=== PATIENT | male | born 1980 | race Caucasian/White ===

== ENCOUNTER 2018-04-21 15:54 | Inpatient (IN) ==
[2018-04-21] MEDS ORDERED: NS IV ONE (16:37)
[2018-04-21] MEDS ORDERED: THIAMINE IV ONE (16:37)
[2018-04-21 16:59] LABS: BASO# 0.03 X1000 (0.0-0.2); BASO% 0.7 % (0.0-0.8); EOS# 0.02 X1000 (0.0-0.7); EOS% 0.4 % (0.0-10.0); HEMATOCRIT 39.3 % (42.0-52.0); HEMOGLOBIN 13.4 g/dL (14.0-18.0); LYMPH% 26.4 % (20.5-51.1); MCH 28.5 PG (27-31); MCHC 34.1 g/dL (33-37); MCV 83.6 FL (81-99); MONO# 0.26 X1000 (0.11-0.59); MONO% 5.7 % (1.7-9.3); NEUT# 3.04 X1000 (1.4-6.5); NEUT% 66.8 % (42.2-75.2); PLT 201 X1000 (130-400); RDW 17.3 % (11.5-14.5); WBC 4.55 X1000 (4.8-10.8)
[2018-04-21 17:27] LABS: URINE SOURCE CLEAN CATCH
[2018-04-21 17:30] LABS: BILIRUBIN URINE SMALL (NEGATIVE); BLOOD URINE MODERATE (NEGATIVE); COLOR YELLOW; GLUCOSE URINE NEGATIVE (NEGATIVE); KETONE URINE NEGATIVE (NEGATIVE); LEUKOCYTES URINE NEGATIVE (NEGATIVE); NITRITE URINE NEGATIVE (NEGATIVE); PH URINE 7.5; PROTEIN URINE 30 mg/dL (NEGATIVE); SP GRAVITY URINE 1.019; TURBIDITY URINE CLEAR (CLEAR); UR EPITHELIAL CELLS <10 /HPF (<10); URINE BACTERIA NEGATIVE /HPF; URINE RBC 20-40 /HPF (<10); URINE WBC <10 /HPF (<10); UROBILINOGEN URINE 8 mg/dL (NORMAL)
[2018-04-21 17:54] LABS: AGAP 14; ALB/GLOB RATIO 0.9; ALBUMIN 3.4 g/dL (3.5-5.0); ALKALINE PHOSPHATASE 162 U/L (32-122); BUN 5 mg/dL (8-22); CALCIUM 7.9 mg/dL (8.8-10.2); CHLORIDE 105 mmol/L (98-107); COSMO 281; CREATININE 0.6 mg/dL (0.7-1.2); ESTIMATED GFR > 60; GLUCOSE 137 mg/dL (70-104); GOT 59 U/L (10-34); GPT 19 U/L (10-44); MAGNESIUM 1.6 mg/dL (1.5-2.7); POTASSIUM 3.6 mmol/L (3.5-5.1); SODIUM 141 mmol/L (136-145); TCO2 22 mmol/L (25-35); TOTAL BILIRUBIN 3.08 mg/dL (0.20-1.00)
--- NOTE | 2018-04-21 17:57 | Diag Imaging Result Doc PS360 ---
EXAM: CT HEAD W/O CONTRAST 04/21/2018 HISTORY: ATAXIC GAIT + FALL TO LEFT TECHNIQUE: This exam was performed using automated exposure control, adjustment of mA or kV according to patient size, and/or use of iterative reconstruction technique. COMMENT: There is no evidence of mass effect, bleed, or abnormal extra-axial fluid collection. The calvarium is intact. There is an effusion throughout the right mastoid air cells. The middle ear cavities appear to be pneumatized. IMPRESSION: No evidence of acute intracranial disease. Right mastoid effusion. Electronically signed by Chau Bond 04/21/2018 5:55 PM
[2018-04-21 18:14] LABS: UR BENZODIAZEPIN QUAL NONE DETECTED (NONE DETECT); UR CANNABINOIDS QUAL NONE DETECTED (NONE DETECT); UR COCAINE QUAL NONE DETECTED (NONE DETECT); UR METHADONE QUAL NONE DETECTED (NONE DETECT); UR OPIATES QUAL NONE DETECTED (NONE DETECT); UR OXYCODONE QUAL NONE DETECTED (NONE DETECT); UR PCP QUAL NONE DETECTED (NONE DETECT)
[2018-04-21 18:19] LABS: UR AMPHETAMINES QUAL NONE DETECTED (NONE DETECT); UR BARBITUATES QUAL NONE DETECTED (NONE DETECT)
[2018-04-21] MEDS ORDERED: NS 1,000 ML IV ONE (18:28)
[2018-04-21] MEDS ORDERED: LACTULOSE PO ONE (18:28)
--- NOTE | 2018-04-21 22:02 | HISTORY AND PHYSICAL ---
CHIEF COMPLAINT: Dizziness. HISTORY OF PRESENT ILLNESS: Patient has history of alcoholic cirrhosis. Has had multiple varices banded. Supposedly stopped drinking 6 months ago but had 3 [employer] Lemonades 3 days ago. Interestingly enough, his alcohol level was 255 in the emergency room. However , he vehemently denies drinking recently. He is showing mild confusion. Has just kind of a glazed over affect. He states that he has been having numbness in his legs. He has had an ataxic gait with falls which prompted him to come into the emergency room. A CT of his head was obtained in the emergency room which was grossly normal. He does not have focal or motor deficits that would fit with an acute CVA. The patient's total bilirubin is noted to be 3.08. His ammonia was mildly elevated at 68. He stated that he did take lactulose in the past but apparently had been taken off of that. He was given a dose of lactulose in the emergency room. This will be continued. He will be placed in ICU for fear of withdrawal as the patient is not very reliable on how much he has been drinking. PAST MEDICAL HISTORY: 1. Alcohol abuse. 2. Alcoholic cirrhosis. 3. History of varices. 4. Tobacco abuse. 5. Alcohol abuse. SURGICAL HISTORY: 1. Banding of varices. 2. Right knee surgery. 3. Right wrist surgery. SOCIAL HISTORY: Is from [place]. He is down visiting family. Smokes 6 cigarettes a day. States that he has not drank in 3 days despite his alcohol level being elevated. Prior to that, he states that he has not drank in 6 months. No illicit drug use or abuse. FAMILY HISTORY: He denies history of coronary artery disease, cancer or CVA in first-degree relatives. ALLERGIES: No known drug allergies. HOME MEDICATIONS: No home medications. REVIEW OF SYSTEMS: Fourteen point review of systems conducted with the patient. Pertinent positives listed above in the HPI. All other systems reviewed and found to be negative. PHYSICAL EXAMINATION: VITAL SIGNS: Temperature 98.5, pulse 88, respirations 14, blood pressure 131/73 , oxygen saturation 95% on room air. GENERAL: A 37-year-old male with somewhat odd affect. He answers all questions appropriately, is alert and oriented times 3. Appears to be just very glazed over, not typical just alcohol intoxication although he is in no acute distress. HEENT: Head is atraumatic, normocephalic. Pupils equal, round, reactive to light. Extraocular eye movement is intact. Sclerae are jaundiced. Conjunctiva is pink. Oral mucosa is dry. NECK: Supple. No JVD. No thyromegaly. No carotid bruit. Trachea is midline. No cervical lymphadenopathy. CARDIAC: S1, S2 appreciated. No murmurs, gallops, or rubs. LUNGS: Clear to auscultation bilaterally. No rhonchi, wheezes, rales. Symmetric rise and fall with respirations. ABDOMEN: Protuberant, soft, nondistended, nontender. Positive fluid wave test. Bowel sounds present in all 4 quadrants, normoactive. No pulsatile mass. No organomegaly. EXTREMITIES: No clubbing, cyanosis, or edema. Two-plus pedal pulses bilaterally. GENITOURINARY: No bladder distention. Patient voids. Otherwise deferred. NEUROLOGICAL: Alert and oriented times 3. There are no focal or motor deficits. Patient does not have a resting tremor. He is symmetrical on both sides. He does have an ataxic gait and seems to be leaning somewhat to the left when he walks. Otherwise, cranial nerves II through XII appear to be grossly intact. DIAGNOSTIC DATA: CT of the head: No acute intracranial process. LABORATORY DATA: WBC 4.55. Hemoglobin 13.4. Hematocrit 39.3. Platelet count 201. Sodium 141. Potassium 3.6. Chloride 105. Carbon dioxide 22. BUN 5. Creatinine 0.6. ASSESSMENT AND PLAN: 1. Hepatic Encephalopathy. We will give lactulose and continue to assess. 2. Acute Alcohol Intoxication. Normal saline and monitor for withdrawal symptoms in the ICU. 3. Questionable Wernicke's Triad. Patient had no Ophthalmoplegia but he is confused and ataxic. Thiamine 500 mg was given in the emergency room. We will continue 100 mg of thiamine IV for the next few days. Again, the patient's CT scan was negative. We will continue to monitor patient's neuro status. 4. Tobacco abuse. Patient smokes around 6 cigarettes per day. Smoking cessation was gone over with the patient. He denies wanting to quit at this time. States it is more of a crutch than a true addiction. Further recommendations per patient clinical course. Dictated by AMY Morris for Price Manning MD I have performed a face to face diagnostic evaluation. Labs/Xrays - reviewed. Exam- Chest- clear, Neuro- ataxia A/P- Alcohol intoxication, - Admit, IV fluids, Thiamine, supportive care. Dr. Manning cc: AMY Morris MD [facility]
[2018-04-22] MEDS ORDERED: ZOFRAN IV PRN (03:18)
[2018-04-22] MEDS ORDERED: MAGNESIUM SULFATE 1 GM/D5W 1 GM/100 ML IVPB IV ONE (03:18)
[2018-04-22] MEDS ORDERED: PHENOBARBITAL IV PRN (03:18)
[2018-04-22] MEDS: POTASSIUM CHLORIDE 20 MEQ/SWI 20 MEQ/100 ML IVPB IV SCH ×2 (04:12→06:33)
[2018-04-22] MEDS: NS 1,000 ML IV SCH ×2 (04:13→15:10)
[2018-04-22 04:33] LABS: HEMOGLOBIN A1C 4.7 % (4.8-6.0)
[2018-04-22 05:56] LABS: AGAP 16; BUN 4 mg/dL (8-22); CHLORIDE 104 mmol/L (98-107); COSMO 276; CREATININE 0.5 mg/dL (0.7-1.2); ESTIMATED GFR > 60; GLUCOSE 90 mg/dL (70-104); MAGNESIUM 1.4 mg/dL (1.5-2.7); POTASSIUM 3.3 mmol/L (3.5-5.1); SODIUM 140 mmol/L (136-145); TCO2 20 mmol/L (25-35)
[2018-04-22 07:11] LABS: INR 1.56; PROTIME 19.9 Seconds (11.0-16.0)
[2018-04-22] MEDS: ATIVAN IV PRN ×2 (07:32→12:56)
[2018-04-22 08:45] LABS: BASO# 0.04 X1000 (0.0-0.2); BASO% 0.6 % (0.0-0.8); EOS# 0.06 X1000 (0.0-0.7); EOS% 0.9 % (0.0-10.0); HEMATOCRIT 35.3 % (42.0-52.0); HEMOGLOBIN 11.7 g/dL (14.0-18.0); LYMPH# 2.18 X1000 (1.2-3.4); LYMPH% 32.3 % (20.5-51.1); MCH 27.5 PG (27-31); MCHC 33.1 g/dL (33-37); MCV 83.1 FL (81-99); MONO# 0.71 X1000 (0.11-0.59); MONO% 10.5 % (1.7-9.3); MPV 11.2 FL (7.4-10.4); NEUT# 3.75 X1000 (1.4-6.5); NEUT% 55.7 % (42.2-75.2); PLT 115 X1000 (130-400); RBC 4.25 XMIL (4.7-6.1); RDW 16.5 % (11.5-14.5); WBC 6.74 X1000 (4.8-10.8)
[2018-04-22] MEDS: LACTULOSE PO SCH ×3 (09:47→21:10)
[2018-04-22] MEDS: XIFAXAN PO SCH ×2 (09:47→21:10)
[2018-04-22] MEDS: THIAMINE 100 MG in NS 50 ML IV SCH (09:47)
[2018-04-22] MEDS: LIBRIUM PO SCH ×3 (12:42→21:10)
--- NOTE | 2018-04-22 14:49 | PROGRESS NOTE ---
DATE: 04/22/2018 SUBJECTIVE: Patient reports feeling much better. He is more oriented. He denies any abdominal pain. He denies any melena or hematochezia. OBJECTIVE: Vital Signs: Temperature 99.3, heart rate 93, respiratory rate 16, blood pressure 110/74, O2 sat 93% on room air. General: This is a 37-year-old male lying in bed in no acute distress. HEENT: Head is normocephalic, atraumatic. Mucous membranes dry. Neck: No JVD noted. No carotid bruits. No lymphadenopathy. No thyromegaly. Cardiovascular : S1, S2 heard. No murmurs, gallops or rubs. Regular rate and rhythm. Respiratory: Clear bilaterally to auscultation. No work of breathing or using accessory muscles. Abdomen: Protuberant, soft, mildly tender to palpation in the epigastric area. Positive fluid wave test. Bowel sounds present. No organomegaly noted. Extremities: No clubbing, cyanosis or edema. Peripheral pulses present in both legs. Neurologic: Patient is alert and oriented. Moves 4 extremities. It was reported ataxic gait, but I have not checked gait today on him. Cranial nerves 2 to 12 grossly normal. LABORATORY DATA: White cell count 6.74, hemoglobin 11.7, hematocrit 35.3, platelets 115,000 with BMP remarkable for potassium 3.3 and magnesium is 1.4, phosphorus 3.9. Alcohol level from yesterday was 255. ASSESSMENT AND PLAN: 1. Hepatic encephalopathy. Patient has been started on lactulose. He is responding to therapy. I prefer to use rifaximin that we are going to add to his treatment today. It is going to be 50 mg p.o. b.i.d. 2. Acute alcohol intoxication. At this point, I am more worried about alcohol withdrawal. Patient reports feeling pretty much anxious. I will start Librium on him 25 mg p.o. q.6 hours. 3. Questionable Wernicke's encephalopathy. Patient is receiving thiamine IV. We will continue to monitor this patient closely. 4. Tobacco abuse. Patient advised to stop smoking completely. 5. We will continue to monitor this patient closely here in the ICU. cc: Alonso Pacheco MD MTDD
[2018-04-22] MEDS ORDERED: G.I. COCKTAIL PO ONE (18:12)
[2018-04-22] MEDS ORDERED: SODIUM CHLORIDE 0.9% INJ SCH (18:15)
[2018-04-22] MEDS: PROTONIX IV SCH (18:22)
[2018-04-23] MEDS: NS 1,000 ML IV SCH ×3 (00:11→17:59)
[2018-04-23] MEDS: ATIVAN IV PRN ×3 (01:15→10:53)
[2018-04-23] MEDS: LIBRIUM PO SCH ×4 (03:49→20:35)
[2018-04-23 04:45] LABS: HEMATOCRIT 34.6 % (42.0-52.0); HEMOGLOBIN 11.5 g/dL (14.0-18.0); MCH 28.3 PG (27-31); MCHC 33.2 g/dL (33-37); MCV 85.2 FL (81-99); MPV 11.7 FL (7.4-10.4); RBC 4.06 XMIL (4.7-6.1); RDW 16.2 % (11.5-14.5); WBC 4.99 X1000 (4.8-10.8)
[2018-04-23 04:53] LABS: INR 1.73; PROTIME 21.6 Seconds (11.0-16.0)
[2018-04-23 05:01] LABS: AGAP 13; ALB/GLOB RATIO 0.8; ALBUMIN 2.7 g/dL (3.5-5.0); ALKALINE PHOSPHATASE 143 U/L (32-122); BUN 4 mg/dL (8-22); CALCIUM 8.1 mg/dL (8.8-10.2); CHLORIDE 103 mmol/L (98-107); COSMO 269; CREATININE 0.5 mg/dL (0.7-1.2); ESTIMATED GFR > 60; GLUCOSE 99 mg/dL (70-104); GOT 48 U/L (10-34); GPT 16 U/L (10-44); POTASSIUM 4.2 mmol/L (3.5-5.1); SODIUM 136 mmol/L (136-145); TCO2 20 mmol/L (25-35); TOTAL BILIRUBIN 5.32 mg/dL (0.20-1.00); TOTAL PROTEIN 6.1 g/dL (6.3-8.3)
[2018-04-23] MEDS: PROTONIX IV SCH ×2 (05:56→17:56)
[2018-04-23] MEDS: XIFAXAN PO SCH ×2 (08:37→20:35)
[2018-04-23] MEDS: LACTULOSE PO SCH ×3 (08:37→20:35)
[2018-04-23] MEDS: THIAMINE 100 MG in NS 50 ML IV SCH (08:37)
--- NOTE | 2018-04-23 11:05 | PROGRESS NOTE ---
DATE: 04/23/2018 SUBJECTIVE: The patient is a little more alert today. He denies any melena or any other signs of GI bleeding. He reports poor appetite. OBJECTIVE: Vital Signs: Temperature 98.9 degrees, heart rate 87, respiratory rate 14, blood pressure 125/64, O2 saturation 94% on room air. General: This is a chronically ill-looking 37- year-old male looking older than his stated age, lying in bed, in no acute distress. HEENT: Head is normocephalic, atraumatic with very icteric sclerae. Pale conjunctivae. Neck: No JVD noted. No carotid bruits. No lymphadenopathy. No thyromegaly. Cardiovascular: S1, S2 heard. No murmurs, gallops, or rubs. Regular rate and rhythm. Respiratory: Clear bilaterally to auscultation. No work of breathing or using accessory muscles. Abdomen: Protuberant, soft, ascites noted. Bowel sounds present. No organomegaly. Extremities: No clubbing, cyanosis, or edema. Peripheral pulses present in both legs. Neurological: The patient is awake, moves 4 extremities. LABORATORY DATA: White cell count 4.99, hemoglobin 11.5, hematocrit 34.6, platelets 81. With INR 1.73. Normal BMP. Ammonia level 91. Alkaline phosphatase 143, total bilirubin 5.32. ASSESSMENT AND PLAN: 1. Hepatic encephalopathy. The patient is on lactulose and rifaximin. He is a little more awake than yesterday. We will continue with both medications. 2. Acute alcohol intoxication. Now, the alcohol level is 0. Will be more worried about alcohol withdrawal. We will continue with Librium 25 mg p.o. q.6 hours. 3. Questionable Wernicke encephalopathy. The patient is on thiamine intravenous. Will continue with the same management. There has been report from nurse that this patient has visual hallucinations. We will continue to monitor this patient closely. 4. Alcoholic liver cirrhosis. Unfortunately, this patient, according to him after 4-6 months of being sober, he stared drinking again. Unfortunately, his labs indicate that he has a poor prognosis. His Child-Diaz Score is 12 with an estimated 1 year mortality of 55% and 2 year estimated mortality of 65%. The patient has been informed about his poor prognosis and the fact that he continues to drink alcohol. He is not even a candidate for any liver transplant. In any case, we will continue to monitor this patient closely. I think if he is not having any more visual hallucinations, I think this patient can be moved to a regular floor tomorrow. cc: Alonso Pacheco MD
--- NOTE | 2018-04-23 15:05 | EKG Report ---
Test Performed on : 04/21/2018 8:12:14 PM Test Reason : EKG. No order in [place] Blood Pressure : / mmHG Vent. Rate : 085 BPM Atrial Rate : 085 BPM P-R Int : 138 ms QRS Dur : 090 ms QT Int : 382 ms P-R-T Axes : -11 -25 059 degrees QTc Int : 454 ms Normal sinus rhythm. Normal ECG No previous ECGs available Unconfirmed Result
[2018-04-23 22:41] VITALS: BP 114/86
--- NOTE | 2018-04-24 18:35 | DISCHARGE SUMMARY ---
ADMISSION DATE: 04/21/2018 DISCHARGE DATE: 04/23/2018 DISCHARGE DIAGNOSES: 1. Hepatic encephalopathy. 2. 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 3. Early alcohol withdrawal. 4. Tobacco abuse. 5. Very advanced alcoholic liver cirrhosis. HOSPITAL COURSE: Patient was admitted basically for alcohol intoxication. Patient has a long known history of advanced liver cirrhosis and he was admitted to intensive unit because of those reasons. Patient was having active visual hallucinations. Patient started having some symptoms of alcohol withdrawal. That is why this patient was in intensive care unit. Unfortunately, on April 23 for unknown reasons, after I had talked with this patient in the morning, there is a note from the nurse that they say the patient wants to go home and he left the hospital AMA, even though he was having visual hallucinations. I think this patient will be really shortly back to the hospital and if that happen we need to talk to him seriously about goals of care. I had a long conversation with him day of discharge about his end stage liver disease. Unfortunately he does not understand how sick he is and continue to drink. In the other hand at this hospitalization he expressed his desire to be full code. At this point, the patient has left the hospital AMA, as we mentioned before, on April 23. cc: Alonso Pacheco MD MTDD
== END 2018-04-23 22:50 | disposition left against medical advice (07) | DRG 433 ==
LOC: ED 15:54 → SUATTDRO 20:19 → EDIPHOLD 20:19 → ICU 04-22 02:12
PROVIDERS: ATTEND Internal Medicine
CPT/HCPCS: 70450; 80048; 80053; 80101; 80301; 80307; 80320; 80324; 80345; 80346; 80353; 80358; 80361; 80365; 81001; 82055; 82140; 82948; 82977; 83036; 83735; 83992; 84100; 84425; 84443; 85025; 85027; 85610; 93005; 96361; 96365; 99285; A9270; C9113; G0431; G0434; G0479; G0480; G6040; J2060; J2405; J2560; J3411; J3475; J3480; J7030; S0164; XXXXX

== ENCOUNTER 2018-04-24 10:41 | Inpatient (IN) ==
[2018-04-24 11:15] LABS: INR 1.59; PROTIME 20.2 Seconds (11.0-16.0); PTT 35.9 Seconds (22.3-41.8)
[2018-04-24 11:27] LABS: AGAP 12; ALB/GLOB RATIO 1.1; ALBUMIN 3.5 g/dL (3.5-5.0); ALKALINE PHOSPHATASE 154 U/L (32-122); BUN 4 mg/dL (8-22); CALCIUM 8.5 mg/dL (8.8-10.2); CHLORIDE 102 mmol/L (98-107); COSMO 276; CREATININE 0.7 mg/dL (0.7-1.2); ESTIMATED GFR > 60; GLUCOSE 188 mg/dL (70-104); GOT 38 U/L (10-34); GPT 16 U/L (10-44); POTASSIUM 3.3 mmol/L (3.5-5.1); SODIUM 137 mmol/L (136-145); TCO2 23 mmol/L (25-35); TOTAL BILIRUBIN 4.41 mg/dL (0.20-1.00); TOTAL PROTEIN 6.7 g/dL (6.3-8.3)
[2018-04-24 11:36] LABS: BASO# 0.01 X1000 (0.0-0.2); BASO% 0.2 % (0.0-0.8); EOS# 0.15 X1000 (0.0-0.7); EOS% 2.5 % (0.0-10.0); HEMATOCRIT 38.1 % (42.0-52.0); HEMOGLOBIN 12.5 g/dL (14.0-18.0); LYMPH# 1.86 X1000 (1.2-3.4); LYMPH% 30.7 % (20.5-51.1); MCH 28.1 PG (27-31); MCHC 32.8 g/dL (33-37); MCV 85.6 FL (81-99); MONO# 0.48 X1000 (0.11-0.59); MONO% 7.9 % (1.7-9.3); MPV 11.2 FL (7.4-10.4); NEUT# 3.55 X1000 (1.4-6.5); NEUT% 58.7 % (42.2-75.2); PLT 91 X1000 (130-400); RBC 4.45 XMIL (4.7-6.1); RDW 16.4 % (11.5-14.5); WBC 6.05 X1000 (4.8-10.8)
--- NOTE | 2018-04-24 12:45 | PROVIDER DOCUMENTATION ---
This chart was entered by Tomas Bonilla Scribe, acting as scribe for Gio Ochoa MD. HPI-General Adult - General Chief Complaint: Altered Mental Status Stated Complaint: AMMONIA LEVEL HIGH,AMS Time Seen by Provider: 04/24/18 11:44 Source: patient Allergies/Adverse Reactions: Patient Allergies Allergy/AdvReac Type Severity Reaction Status Date / Time No Known Allergies Allergy Verified 04/24/18 11:14 Home Medications: Home Medication List Medication Instructions Recorded Confirmed Last Taken Type NK [No Home Medications] 04/24/18 04/24/18 Unknown History - History of Present Illness -Gen Adult Nature of Presenting Problems: 37 yom presents with recheck. Pt was admitted to ICU yesterday for Hepatic Encephalopathy and pt signed out AMA.Pt reports he will stay this time. Pt Reports his ammonia level is high and has been hallucinating x 3 days worse day yesterday. Reports last alcohol intake was 3 (16oz) beers yesterday. Last BM 5 days ago. Review of Systems - Adult - REVIEW OF SYSTEMS - ADULT Constitutional: reports: see HPIkrupa. denies: chills, fever Eyes: reports: no symptoms reported Ears, Nose, Mouth & Throat: denies: ear pain, sinus problem, throat pain Cardiovascular: denies: chest pain, irregular heart rate, syncope Respiratory: denies: cough, dyspnea on exertion, shortness of breath, wheezing Gastrointestinal: denies: abdominal pain, diarrhea, nausea, vomiting Genitourinary: denies: dysuria, frequent UTI's, hematuria, hesitency Musculoskeletal: denies: bone pain, joint pain, neck pain Integumentary: reports: no symptoms reported Neurological: denies: loss of balance, numbness, paresthesia, slurred speech Psychiatric: denies: anti-depressant use, panic attacks, suicidal thoughts Endocrine: reports: see HPI. denies: goiter, heat intolerance, increased thirst , other Hematologic/Lymphatic: reports: see HPI Allergic/Immunologic: reports: no symptoms reported All Other Systems: Reviewed and Negative Past History - Adult - PAST MEDICAL HISTORY-ADULT Review of Records: reports: Old Records Reviewed, Nursing Assessment Review, Medications Reviewed Major Childhood Illnesses: reports: denies history Cardiovascular: reports: HTN Respiratory: reports: denies history Gastrointestinal: reports: denies history Obstetrical/Gynecological: reports: denies history Genitourinary: reports: denies history Musculoskeletal: reports: denies history Neurological: reports: denies history Endocrine/Immune: reports: denies history Other Conditions: reports: denies history - IMMUNIZATION STATUS Childhood Immunizations: See Nurse Assessment Flu Vaccine: See Nurse Assessment - FAMILY HISTORY Family History: reviewed, not pertinent - SOCIAL HISTORY Smoking: cigarettes, less than 1 pack/day Provider spent 3-5 mins advising pt. on dangers of tobacco.: Discussed manners to quit use, and f/u contacts for add'l counseling. Substance Use: alcohol Physical Exam-General - PHYSICAL EXAM-ADULT Initial Vital Signs Reviewed: Yes - CONSTITUTIONAL General Appearance: alert, moderate distress, slow to respond. negative: appears well - EYES Eyes: PERRL/EOMI, pale conjunctivae - HEAD, EARS, NOSE, MOUTH & THROAT HENMT: moist mucous membranes, TMs normal, pharynx normal - NECK Neck: non-tender, full range of motion, supple, normal inspection - RESPIRATORY Respiratory: lungs clear, normal breath sounds, no pleuratic chest pain, no respiratory distress, no accessory muscle use - CARDIOVASCULAR Cardiovascular: no edema, no gallop, no JVD, no murmur, tachycardia - GASTROINTESTINAL (ABDOMEN) Abdominal Exam: soft, no organomegaly, no pulsatile mass - LYMPHATIC Lymphatic: no adenopathy - MUSCULOSKELETAL Back Exam: normal inspection Extremity: normal range of motion, non-tender - SKIN Integumentary: normal turgor, warm/dry, pallor. negative: normal color - NEUROLOGIC Neurologic: grossly normal - PSYCHIATRIC Psych/Mental Status: normal mood/affect, normal thought content, normal thought process, oriented x 3 Progress - PLAN OF CARE/RESULTS Progress/Plan/Lab Results: Vital Signs - 8 hr 04/24/18 10:46 Temperature 98.1 F Pulse Rate 121 H Respiratory Rate 20 Blood Pressure 139/89 O2 Sat by Pulse Oximetry 100 Laboratory Results - last 24 hr 04/24/18 04/24/18 04/24/18 10:50 10:50 10:50 WBC 6.05 RBC 4.45 L Hgb 12.5 L Hct 38.1 L MCV 85.6 MCH 28.1 MCHC 32.8 L RDW Std Deviation 16.4 H Plt Count 91 L MPV 11.2 H Immature Gran % (Auto) 0.0 Neut % (Auto) 58.7 Lymph % (Auto) 30.7 Cameron % (Auto) 7.9 Eos % (Auto) 2.5 Baso % (Auto) 0.2 Immature Gran # (Auto) 0.00 Neut # (Auto) 3.55 Lymph # (Auto) 1.86 Cameron # (Auto) 0.48 Eos # (Auto) 0.15 Baso # (Auto) 0.01 PT INR PTT (Actin FS) Sodium 137 Potassium 3.3 L D Chloride 102 Carbon Dioxide 23 L Anion Gap 12 BUN 4 L Creatinine 0.7 Estimated GFR/1.73 m2 > 60 BUN/Creatinine Ratio 6 Glucose 188 H D POC Glucose Calculated Osmolality 276 Calcium 8.5 L Total Bilirubin 4.41 H AST 38 H ALT 16 Alkaline Phosphatase 154 H Ammonia 90 H Total Protein 6.7 Albumin 3.5 Globulin 3.2 Albumin/Globulin Ratio 1.1 04/24/18 04/24/18 10:50 11:03 WBC RBC Hgb Hct MCV MCH MCHC RDW Std Deviation Plt Count MPV Immature Gran % (Auto) Neut % (Auto) Lymph % (Auto) Cameron % (Auto) Eos % (Auto) Baso % (Auto) Immature Gran # (Auto) Neut # (Auto) Lymph # (Auto) Cameron # (Auto) Eos # (Auto) Baso # (Auto) PT 20.2 H INR 1.59 PTT (Actin FS) 35.9 Sodium Potassium Chloride Carbon Dioxide Anion Gap BUN Creatinine Estimated GFR/1.73 m2 BUN/Creatinine Ratio Glucose POC Glucose 181 H Calculated Osmolality Calcium Total Bilirubin AST ALT Alkaline Phosphatase Ammonia Total Protein Albumin Globulin Albumin/Globulin Ratio Orders Category Date Time Status ALCOHOL BLOOD Stat Lab 04/24/18 10:50 Received AMMONIA [CHEM] Stat Lab 04/24/18 10:50 Completed CBC WITH ELECTRONIC DIFF [HEME] Stat Lab 04/24/18 10:50 Completed COMPREHENSIVE METABOLIC PANEL [CHEM] Stat Lab 04/24/18 10:50 Completed PROTIME WITH INR [COAG] Stat Lab 04/24/18 10:50 Completed PTT [COAG] Stat Lab 04/24/18 10:50 Completed URINALYSIS [URINALYSIS] Stat Lab 04/24/18 10:53 Uncollected URINE DRUG SCREEN Stat Lab 04/24/18 11:46 Uncollected Generalized Adult Illness >60 Stat Oth 04/24/18 10:53 Ordered Result Diagrams: 04/24/18 10:50 04/24/18 10:50 - CONSULTS/PCP/HOSPITALIST Notification #1 *Consult/PCP/Hospitalist*: Kb KEATING for Dr. 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 The physician did have a face to face encounter with the patient. This chart was documented by the indicated scribe, (Tomas Bonilla Scribe) and accurately reflects the services I performed and decisions made by me, Gio Ochoa MD, as attested by the provider's signature.
[2018-04-24] MEDS ORDERED: LACTULOSE PO ONE (12:46)
[2018-04-24] MEDS ORDERED: ATIVAN IM ONE (12:47)
[2018-04-24] MEDS ORDERED: NS 1,000 ML IV ONE (15:17)
[2018-04-24] MEDS ORDERED: ZOFRAN IV PRN (15:17)
[2018-04-24] MEDS ORDERED: SODIUM CHLORIDE 0.9% INJ SCH (15:30)
--- NOTE | 2018-04-24 16:21 | HISTORY AND PHYSICAL ---
PRIMARY CARE PHYSICIAN: None. CHIEF COMPLAINT: Lethargy. HISTORY OF PRESENT ILLNESS: Mr. Adan is a 37-year-old male who left against medical advice yesterday from the ICU for hepatic encephalopathy. He has a history of alcoholic cirrhosis, esophageal varices status post banding, and nicotine and alcohol dependence. He was admitted for increasing ataxia yesterday. He was found to have elevated ammonia levels and was admitted to the ICU for hepatic encephalopathy. He left against medical advice because he was tired of "waiting" although he is unsure of what he was waiting for. When he got home his family became upset with him, implored him to come back to the ER, which he eventually did today. He denies having any alcohol since he left. He is somewhat lethargic but has no other complaints and denies specifically any abdominal pain and no hematemesis, nausea, or vomiting. Labs today show ammonia level of 90, otherwise his laboratory data is essentially unchanged, actually improved from yesterday. Will admit him for further treatment and evaluation. PAST MEDICAL HISTORY: 1. Alcoholic cirrhosis of the liver. 2. Alcohol dependence. 3. History of portal hypertension with esophageal varices, status post banding. 4. Nicotine dependence. PAST SURGICAL HISTORY: Right knee surgery, right wrist surgery, and esophageal variceal banding. SOCIAL HISTORY: He actually lives in [place]. He is down here as part of his recovery from alcohol while living with his parents. He smokes six cigarettes a day. Denies any alcohol use in the last 24 hours. FAMILY HISTORY: Unremarkable. ALLERGIES: No known drug allergies. HOME MEDICATIONS: None. REVIEW OF SYSTEMS: A 14-point review of systems obtained and found to be negative with the exception of the HPI. PHYSICAL EXAMINATION: VITAL SIGNS: Blood pressure is 139/89, heart rate is 92, O2 saturation 100% on room air, temperature is 98.1. GENERAL: This is a chronically ill, disheveled appearing 37-year-old male lying in the hospital bed in no acute distress. NEUROLOGICAL: He is slightly lethargic but he is oriented. Follows commands without focal deficits. HEENT: Head is atraumatic and normocephalic. Pupils are equal, round and reactive to light. Sclerae are icteric. Conjunctivae is pale. Oral mucosa is dry and pale. NECK: Supple. Trachea is midline. There is no JVD. CHEST: Clear to auscultation bilaterally. CARDIOVASCULAR: Regular rate and rhythm. S1 and S2 is noted. There are no murmurs. GASTROINTESTINAL: Slight ascitic wave noted but there is no pain to palpation. Bowel sounds are active. EXTREMITIES: No edema. Pulses 2+ bilaterally. IMAGING: No imaging has been done. EKG shows normal sinus rhythm without acute ST or T abnormalities. LABORATORY DATA: WBC 6.05, hemoglobin 12.5, hematocrit 38.1, platelet count 91. INR 1.59. Sodium 137, potassium 3.3, chloride 102, CO2 23, anion gap 12, BUN 4, creatinine 0.7, glucose 188, calcium 8.5, total bilirubin 4.41, AST 38, ALT 16, alkaline phosphatase 154. Ammonia 90. Albumin 3.5. Alcohol level is 0. ASSESSMENT AND PLAN: 1. Hepatic encephalopathy: Will continue rifaximin and increase his lactulose to 30 mL orally three times a day. Continue intravenous fluids. Check an abdominal ultrasound to evaluate for any ascites that might need to be evacuated. 2. Alcoholic cirrhosis of the liver: The patient has a Child-Diaz classification grade C severity of liver disease. Will continue supportive treatment and have him follow up with his tourism radio presenter outpatient. 3. Hypokalemia: Will check a magnesium and replace and follow daily. 4. Deep venous thrombosis prophylaxis with sequential compression devices/ thromboembolic deterrent hose. Patient seen and examined by me face to face, all the laboratory, vitals signs and images were reviewed, Patient presented with some confusion, likely hepatic encephalopathy, he came in yesterday and was admitted but he decided to leave AMA, it looks like the family brought this patient back for treatment, he seems to be sleepy, he stated that he has not been sleeping in days, as per his Mom he drank a few days ago while she was traveling, he is answering my questions but slow, he will be admitted again, we will use rifaximin and lactulose, we will monitor his ammonia level and we will place a consult for physical therapy, he is from [place] and wants to continue treatment over there once he is discharged,, I agree with the LAUNCHING PAD MECHANIC's assessment and plan, Alo Ramirez. Further recommendations to follow. Dictated by AMY Reid for Alo Adrian MD cc: AMY Reid MD MTDD
--- NOTE | 2018-04-24 16:54 | Diag Imaging Result Doc PS360 ---
US ABDOMEN-COMPLETE - 04/24/2018 INDICATION: cirrhosis COMPARISON: None FINDINGS: There is moderate fatty change of the liver. No liver masses. No free fluid. There is splenomegaly. The spleen measures 14 x 13.8 x 4.4 cm. The pancreas is obscured. Both kidneys are normal. The gallbladder is grossly normal. Common bile duct measures 3 mm. Aorta, IVC, and main portal vein are patent. IMPRESSION: Fatty change of the liver. Splenomegaly. Electronically signed by Sandeep Ordaz 04/24/2018 4:51 PM
[2018-04-24] MEDS: PROTONIX IV SCH (17:00)
[2018-04-24] MEDS: LACTULOSE PO SCH (17:00)
[2018-04-24] MEDS ORDERED: KLOR-CON PO ONE (20:44)
[2018-04-24] MEDS: M.V.I.-12 10 ML, FOLIC ACID 1 MG, MAGNESIUM SULFATE 1 GM, THIAMINE 100 MG in NS 1,000 ML IV SCH (21:49)
[2018-04-24] MEDS: XIFAXAN PO SCH (21:50)
[2018-04-24 22:01] LABS: URINE SOURCE CLEAN CATCH
[2018-04-24 22:13] LABS: BILIRUBIN URINE SMALL (NEGATIVE); BLOOD URINE SMALL (NEGATIVE); COLOR YELLOW; GLUCOSE URINE NEGATIVE (NEGATIVE); KETONE URINE NEGATIVE (NEGATIVE); LEUKOCYTES URINE NEGATIVE (NEGATIVE); NITRITE URINE NEGATIVE (NEGATIVE); PH URINE 6.5; PROTEIN URINE NEGATIVE (NEGATIVE); SP GRAVITY URINE 1.012; TURBIDITY URINE HAZY (CLEAR); UROBILINOGEN URINE 12 mg/dL (NORMAL)
[2018-04-24 22:18] LABS: UR EPITHELIAL CELLS <10 /HPF (<10); URINE BACTERIA NEGATIVE /HPF; URINE RBC <10 /HPF (<10); URINE WBC <10 /HPF (<10)
[2018-04-24 22:26] LABS: URINE CASTS NONE SEEN; URINE CRYSTALS CA OXALATE PRESENT; URINE SMALL ROUND CELLS NONE SEEN; URINE YEAST NONE SEEN
[2018-04-24 22:35] LABS: UR AMPHETAMINES QUAL NONE DETECTED (NONE DETECT); UR BARBITUATES QUAL PRESUMPTIVE POSITIVE (NONE DETECT); UR BENZODIAZEPIN QUAL PRESUMPTIVE POSITIVE (NONE DETECT); UR CANNABINOIDS QUAL NONE DETECTED (NONE DETECT); UR COCAINE QUAL NONE DETECTED (NONE DETECT); UR METHADONE QUAL NONE DETECTED (NONE DETECT); UR OPIATES QUAL NONE DETECTED (NONE DETECT); UR OXYCODONE QUAL NONE DETECTED (NONE DETECT); UR PCP QUAL NONE DETECTED (NONE DETECT)
[2018-04-25] MEDS: ATIVAN IV PRN (02:04)
[2018-04-25 08:00] LABS: HEMOGLOBIN 11.4 g/dL (14.0-18.0); MCH 28.3 PG (27-31); MCHC 32.6 g/dL (33-37); MCV 86.8 FL (81-99); MPV 12.4 FL (7.4-10.4); RBC 4.03 XMIL (4.7-6.1); RDW 16.7 % (11.5-14.5)
[2018-04-25 08:23] LABS: AGAP 10; ALB/GLOB RATIO 1.1; ALBUMIN 3.1 g/dL (3.5-5.0); ALKALINE PHOSPHATASE 132 U/L (32-122); BUN 4 mg/dL (8-22); CHLORIDE 108 mmol/L (98-107); COSMO 276; CREATININE 0.6 mg/dL (0.7-1.2); ESTIMATED GFR > 60; GLUCOSE 126 mg/dL (70-104); GOT 38 U/L (10-34); GPT 15 U/L (10-44); POTASSIUM 3.5 mmol/L (3.5-5.1); SODIUM 139 mmol/L (136-145); TCO2 21 mmol/L (25-35); TOTAL BILIRUBIN 2.92 mg/dL (0.20-1.00); TOTAL PROTEIN 5.9 g/dL (6.3-8.3)
[2018-04-25] MEDS: LACTULOSE PO SCH ×3 (09:24→16:38)
[2018-04-25] MEDS: XIFAXAN PO SCH ×2 (09:24→21:28)
[2018-04-25] MEDS: M.V.I.-12 10 ML, FOLIC ACID 1 MG, MAGNESIUM SULFATE 1 GM, THIAMINE 100 MG in NS 1,000 ML IV SCH (09:27)
--- NOTE | 2018-04-25 15:30 | PROGRESS NOTE ---
DATE: 04/25/2018 SUBJECTIVE: This patient is resting comfortably in bed. Apparently during the night he was a little bit agitated. Today he is sleepy but arousable, oriented x3. His mother is at the bedside. She feels that he is more stable. We discussed the case and likely this patient will be discharged home tomorrow. OBJECTIVE: Vital Signs: Temperature 97.9 degrees, pulse 95, respiratory rate 16, blood pressure 103/58, oxygen saturation 96 on room air. HEENT: Head normocephalic. No trauma. PERRLA. Neck: Supple. No JVD. Central trachea. Chest: Clear to auscultation. Decreased at the bases. Abdomen: Soft, nontender, nondistended. No hepatosplenomegaly. Extremities: No edema. No clubbing. No cyanosis. Neurological: The patient is sleepy but arousable. Oriented x3. He follows commands but he is really sleepy. LABORATORY: WBC 139, potassium 3.5, chloride 108, bicarbonate 21, BUN 4, creatinine 0.6, glucose 126,000. Calcium 8. AST 38, ALT 15, alkaline phosphatase 132, albumin 3.1. ASSESSMENT AND PLAN: 1. Hepatic encephalopathy. This is getting much better. Continue with lactulose and rifaximin. Continue with IV fluids, banana bag. Abdominal ultrasound showed fatty change of the liver and splenomegaly. 2. History of alcoholic liver cirrhosis. Will continue with the same management and supportive care. I do not have any records corroborating the liver cirrhosis. As per the mother, he does have cirrhosis of the liver. Ultrasound showed fatty liver but no evidence of cirrhosis so far. Hopefully upon discharge I will ask Gastroenterology Department to evaluate this patient as an outpatient. 3. Hypokalemia, resolved. We also checked the magnesium level and it is normal. 4. Alcohol abuse. This patient has been highly advised against alcohol use. I will continue with daily cessation education. 5. Deep vein thrombosis prophylaxis with SCDs and NED hose. cc: Alo Adrian MD
[2018-04-25] MEDS: PROTONIX IV SCH (16:38)
[2018-04-26 08:23] LABS: HEMATOCRIT 36.1 % (42.0-52.0); HEMOGLOBIN 11.8 g/dL (14.0-18.0); MCH 28.3 PG (27-31); MCHC 32.7 g/dL (33-37); MCV 86.6 FL (81-99); MPV 11.3 FL (7.4-10.4); RBC 4.17 XMIL (4.7-6.1); RDW 17.4 % (11.5-14.5); WBC 5.4 X1000 (4.8-10.8)
[2018-04-26 08:45] LABS: AGAP 11; ALBUMIN 3.1 g/dL (3.5-5.0); ALKALINE PHOSPHATASE 136 U/L (32-122); BUN 4 mg/dL (8-22); CALCIUM 8.2 mg/dL (8.8-10.2); CHLORIDE 106 mmol/L (98-107); COSMO 273; CREATININE 0.7 mg/dL (0.7-1.2); ESTIMATED GFR > 60; GLUCOSE 104 mg/dL (70-104); GOT 35 U/L (10-34); GPT 14 U/L (10-44); POTASSIUM 3.9 mmol/L (3.5-5.1); SODIUM 138 mmol/L (136-145); TCO2 21 mmol/L (25-35); TOTAL PROTEIN 6.2 g/dL (6.3-8.3)
[2018-04-26] MEDS: LACTULOSE PO SCH ×3 (08:47→18:38)
[2018-04-26] MEDS: XIFAXAN PO SCH ×2 (08:47→21:02)
[2018-04-26] MEDS: M.V.I.-12 10 ML, FOLIC ACID 1 MG, MAGNESIUM SULFATE 1 GM, THIAMINE 100 MG in NS 1,000 ML IV SCH (08:47)
--- NOTE | 2018-04-26 12:42 | PROGRESS NOTE ---
DATE: 04/26/2018 SUBJECTIVE: This patient just came back from walking with physical therapy, he seems to be more awake, alert, he is answering all my questions. As per the patient, he is confused and having nightmares during the night. Since he is more awake he is asking for his medications especially his Seroquel. He is also on mirtazapine during the night. I will put this patient back on that. He feels slow and he states that he is not sleeping. His mother is at the bedside. As per the patient, he has been taking lactulose but no rifaximin. Vital signs are stable. Ammonia level is elevated at 134, even higher compared with admission. As per the patient, he had a bowel movement yesterday but not today. I will continue with lactulose 3 times a day and rifaximin. OBJECTIVE: Vital Signs: Temperature 97.4 degrees, pulse 83, respiratory rate 19 blood pressure 130/82, oxygen saturation 99 on room air. HEENT: Head normocephalic. No trauma. PERRLA. Neck: Supple. No JVD. No masses. Central trachea. Chest: Clear to auscultation. Decreased at the bases. Abdomen: Soft, nontender, mildly distended. No splenomegaly. Extremities: No edema. No clubbing. No cyanosis. Neurological: The patient is awake, alert, his answers are slow. He is oriented x3. He is following commands. He has been working with physical therapy. LABORATORY: WBC 5.4, hemoglobin 11.8, hematocrit 36.1, platelets 91,000. Sodium 138, potassium 3.9, chloride 106, bicarbonate 21, BUN 4, creatinine 0.7, glucose 104, calcium 8.2. Total bilirubin 2.6, AST 35, ALT 14 alkaline phosphatase 136, ammonia 134, albumin 3.1. ASSESSMENT AND PLAN: 1. Hepatic encephalopathy. This is much better but, per the patient, he is still confused and slow. Ammonia level increased from 90 to 134 and he still not having too much bowel movements only 1 in the past 5 days abdominal ultrasound showed fatty change of the liver and splenomegaly. 2. History of alcoholic liver cirrhosis. I will continue with the same management. Supportive care. I will continue physical therapy. I do not have any previous records to corroborate his liver cirrhosis. As per the patient, he has been following a liver doctor in [place]. Ultrasound showed fatty liver. He does not want to be seen by 1 of the gastroenterologists here in the area because he is planning to go back to [place] but, as per the mother, he will stay here a little bit more. 3. Hypokalemia, resolved. 4. Alcohol abuse. This patient has been highly advised against alcohol use. I will continue with daily cessation education. 5. Generalized weakness continue physical therapy. I think he is getting a little bit better. 6. Deep vein thrombosis prophylaxis with SCDs and NED hose. 7. Thrombocytopenia and elevated liver function tests likely secondary to liver cirrhosis. For now, we will continue with the same treatment. cc: Alo Adrian MD
[2018-04-26] MEDS: PROTONIX IV SCH (18:37)
[2018-04-26] MEDS ORDERED: SEROQUEL PO SCH (21:00)
[2018-04-26] MEDS ORDERED: REMERON PO SCH (21:00)
[2018-04-26] MEDS: ATIVAN IV PRN (21:15)
[2018-04-27 07:41] LABS: HEMATOCRIT 37.9 % (42.0-52.0); HEMOGLOBIN 12.3 g/dL (14.0-18.0); MCH 28.3 PG (27-31); MCHC 32.5 g/dL (33-37); MCV 87.1 FL (81-99); MPV 11.7 FL (7.4-10.4); RBC 4.35 XMIL (4.7-6.1); RDW 17.6 % (11.5-14.5); WBC 4.03 X1000 (4.8-10.8)
[2018-04-27 07:54] LABS: AGAP 10; ALB/GLOB RATIO 1.1; ALBUMIN 3.4 g/dL (3.5-5.0); ALKALINE PHOSPHATASE 130 U/L (32-122); BUN 5 mg/dL (8-22); CALCIUM 8.7 mg/dL (8.8-10.2); CHLORIDE 107 mmol/L (98-107); COSMO 278; CREATININE 0.7 mg/dL (0.7-1.2); ESTIMATED GFR > 60; GLUCOSE 93 mg/dL (70-104); GOT 34 U/L (10-34); GPT 14 U/L (10-44); POTASSIUM 3.8 mmol/L (3.5-5.1); SODIUM 141 mmol/L (136-145); TCO2 24 mmol/L (25-35); TOTAL BILIRUBIN 3.53 mg/dL (0.20-1.00); TOTAL PROTEIN 6.6 g/dL (6.3-8.3)
[2018-04-27] MEDS: LACTULOSE PO SCH (08:24)
[2018-04-27] MEDS: XIFAXAN PO SCH (08:25)
[2018-04-27] MEDS: M.V.I.-12 10 ML, FOLIC ACID 1 MG, MAGNESIUM SULFATE 1 GM, THIAMINE 100 MG in NS 1,000 ML IV SCH (08:25)
[2018-04-27 10:00] VITALS: BP 101/79
--- NOTE | 2018-04-30 09:39 | DISCHARGE SUMMARY ---
ADMISSION DATE: 04/24/2018 DISCHARGE DATE: 04/27/2018 DISCHARGE DIAGNOSES: 1. Hepatic encephalopathy, resolved. 2. History of alcoholic liver cirrhosis. 3. Hypokalemia, resolved. 4. Alcohol use and abuse. 5. Generalized weakness and physical deconditioning. 6. Thrombocytopenia. HOSPITAL COURSE: This is a 37-year-old male with a past medical history of alcohol abuse, alcoholic liver cirrhosis, history of portal hypertension with esophageal varices status post banding, and nicotine dependence, admitted on 04/24/2018. He was actually readmitted because he left AMA the prior day from this hospital due to hepatic encephalopathy. He was found to have elevated ammonia levels and was admitted to the ICU the prior day. The family brought this patient back to the ER. He denies any alcohol use since he left. He was somewhat lethargic, but he was not complaining of any other problems. He denied abdominal pain. No hematemesis, no nausea, no vomiting, no melena. He was admitted to the medical floor, and he was placed on lactulose, rifaximin, multivitamin, and Protonix. When his encephalopathy was better, we put him back on mirtazapine and Seroquel, which he was taking at home. Apparently he was unable to sleep very well because of that, and he was getting nightmares. His mother was always at the bedside at the moment of my evaluations. His ammonia level was elevated yesterday at 134, and he was feeling somewhat confused, even though he was answering all my questions. Physical therapy was working with this patient as well, and he was able to walk, but he was weak. I had a long conversation with his mother, who is at the bedside. This patient is from [place], but he is going to stay here, and they will take care of him. She wants to take the patient home so she can control his diet and his physical activity. He seems to be stable. The ammonia level is 82 today. He has been sleepy but arousable. He is completely oriented. I feel that he is going to be stable if we discharge this patient home. They agree with this plan. OBJECTIVE: Vital Signs: Temperature 97.8, pulse 93, respiratory rate 20, blood pressure 101/79, oxygen saturation 97% on room air. HEENT: Head normocephalic. No trauma. PERRLA. Neck: Supple. No JVD. No masses. Central trachea. Chest: Clear to auscultation. No wheezing. No rales. Abdomen: Soft and slightly distended. No tenderness to palpation. Positive bowel sounds. Extremities: No edema. No clubbing. No cyanosis. Neurologic: The patient is sleepy but arousable. He is answering all my questions. He is following commands. He is oriented x3. LABORATORY DATA: WBCs 4, hemoglobin 12.3, hematocrit 37.9, platelets 86. Sodium 141, potassium 3.8, chloride 107, bicarbonate 24, BUN 5, creatinine 0.7, glucose 93. Calcium 8.7, albumin 3.4. DISCHARGE MEDICATIONS: 1. Lactulose 30 mL p.o. t.i.d. He needs to titrate this to have at least 2-3 bowel movements per day. 2. Naltrexone 50 mg p.o. daily. 3. Propranolol 10 mg p.o. b.i.d. 4. Mirtazapine 7.5 mg p.o. at bedtime. 5. Seroquel 50 mg p.o. at bedtime. 6. Spironolactone 25 mg p.o. daily. (Basically, those are his home medications, which I will continue. They agree with the management). FOLLOWUP: He needs to follow up with his primary care doctor in 1 week, and they need to call for an appointment with a direct selling counselor, DR. Sierra, to be seen in 1-2 weeks. DISCHARGE TIME: 35 minutes. cc: Alo Adrian MD
== END 2018-04-27 15:15 | disposition home or self-care (01) | DRG 442 ==
LOC: ED 10:41 → EDIPHOLD 10:42 → 3N 16:41
PROVIDERS: ATTEND Internal Medicine
CPT/HCPCS: 76700; 80053; 80101; 80301; 80307; 80320; 80324; 80345; 80346; 80353; 80358; 80361; 80365; 81001; 82055; 82140; 82948; 83735; 83992; 85025; 85027; 85610; 85730; 96372; 96374; 97116; 97162; 97530; 99285; A9270; C9113; G0431; G0434; G0479; G0480; G6040; J2060; J3411; J3475; J7030; S0164; XXXXX